=== PATIENT | female | born 1995 | race Caucasian/White ===

== ENCOUNTER 2019-01-17 08:12 | Emergency (ER) | payer BC, MEDICAID ==
[~2019-01-17] VITALS: Ht 149.9 cm; Wt 63.5 kg
[2019-01-17 08:42] LABS: Basophils # (auto) 0 uL; Basophils % (auto) 0.4 % (0.0-2.0); Eosinophils # (auto) 0 uL; Eosinophils % (auto) 0.1 % (0.0-7.0); Hematocrit 42.5 % (36.0-46.0); Hemoglobin 14.5 g/dL (12.2-16.2); Lymphocytes # (auto) 4.1 uL; Lymphocytes % (auto) 42.4 % (10.0-50.0); Mean Corpuscular Hemoglobin 29.9 pg (28.0-32.0); Mean Corpuscular Volume 87.8 fL (80.0-100.0); Monocytes # (auto) 0.9 uL; Monocytes % (auto) 9.2 % (0.0-12.0); Neutrophils # (auto) 4.6 uL; Neutrophils % (auto) 47.9 % (37.0-80.0); Nucleated Red Blood Cells % 0.1 %; Platelet Count (auto) 316 10^3/uL (140-450); Red Blood Cells 4.84 10^6/uL (4.0-5.20); Red Cell Distribution Width 13.3 % (11.8-14.3); White Blood Cell 9.6 10^3/uL (4.4-10.8)
[2019-01-17 09:21] LABS: Albumin 4.1 g/dL (3.4-5.0); BUN/Creatinine Ratio 17.3; Bilirubin, Total 0.6 mg/dL (0.2-1.0); Calcium 9.3 mg/dL (8.5-10.1); Total Protein 8.8 g/dL (6.4-8.2)
[2019-01-17 09:22] LABS: Potassium 3.6 mmol/L (3.5-5.1)
[2019-01-17] MEDS ORDERED: PROMETHAZINE HCL 25 MG/ML 1ML IV ONE (11:00)
[2019-01-17] MEDS ORDERED: SODIUM CHLORIDE 0.9% 1,000 ML IVB ONE (12:27)
[2019-01-17] MEDS ORDERED: METOCLOPRAMIDE HCL 5MG/ml INJ 2ml VIAL IV ONE (12:30)
[2019-01-17 15:46] VITALS: BP 109/75
== END 2019-01-17 16:21 | disposition home or self-care (01) ==
LOC: ER 08:12
DX: F12.988 Cannabis use, unspecified with other cannabis-induced disorder (principal); N39.0 Urinary tract infection, site not specified
CPT/HCPCS: 36415; 80053; 81002; 81025; 83690; 83735; 84443; 85025; 96361; 96374; 96375; 99283; J2550; J2765; J7030

== ENCOUNTER 2019-01-19 16:33 | Emergency (ER) | payer MEDICAID ==
[~2019-01-19] VITALS: Ht 149.9 cm; Wt 63.5 kg
[2019-01-19 19:09] LABS: Urine Bacteria FEW /hpf (None Seen); Urine Blood Negative /uL (Negative); Urine Mucus MANY (None Seen); Urine Specific Gravity 1.036 (1.001-1.035); Urine WBC 35 /hpf (0 - 5)
[2019-01-19 19:19] LABS: Urine Pregnacy Test Negative (Negative)
[2019-01-19 19:24] LABS: Alcohol, Urine < 3.0 mg/dL (0-5); Amphetamine Screen, Urine NEGATIVE (NEGATIVE); Barbiturate Scree,Urine NEGATIVE (NEGATIVE); Benzodiazephine Screen, Urine NEGATIVE (NEGATIVE); Cannabinoid Screen, Urine POSITIVE (NEGATIVE); Cocaine Screen, Urine NEGATIVE (NEGATIVE); Opiate Scree,Urine NEGATIVE (NEGATIVE); Phencyclidine Screen, Urine NEGATIVE (NEGATIVE)
[2019-01-19 19:45] VITALS: BP 124/79
== END 2019-01-19 20:49 | disposition home or self-care (01) ==
LOC: EDBD 16:33 → ER 16:33
DX: F41.1 Generalized anxiety disorder (principal); N39.0 Urinary tract infection, site not specified; R51 Headache; F12.10 Cannabis abuse, uncomplicated
CPT/HCPCS: 70450; 80307; 81001; 81025

== ENCOUNTER 2019-02-16 10:33 | Emergency (ER) | payer MEDICAID ==
[~2019-02-16] VITALS: Ht 149.9 cm; Wt 65.8 kg
[2019-02-16] MEDS ORDERED: SODIUM CHLORIDE 0.9% 1,000 ML IV ONE (10:39)
[2019-02-16] MEDS ORDERED: LORazepam 2MG/ML-1ML VIAL IV ONE (10:45)
[2019-02-16 11:01] LABS: Basophils # (auto) 0 uL; Basophils % (auto) 0.5 % (0.0-2.0); Eosinophils # (auto) 0 uL; Eosinophils % (auto) 0.4 % (0.0-7.0); Hematocrit 41.7 % (36.0-46.0); Hemoglobin 14.2 g/dL (12.2-16.2); Lymphocytes # (auto) 1.2 uL; Lymphocytes % (auto) 15.3 % (10.0-50.0); Mean Corpuscular Hemoglobin 29.8 pg (28.0-32.0); Mean Corpuscular Hgb Conc. 33.9 g/dL (32.0-36.0); Mean Corpuscular Volume 87.9 fL (80.0-100.0); Monocytes # (auto) 0.4 uL; Monocytes % (auto) 4.8 % (0.0-12.0); Neutrophils # (auto) 6.4 uL; Nucleated Red Blood Cells % 0.2 %; Platelet Count (auto) 275 10^3/uL (140-450); Red Blood Cells 4.74 10^6/uL (4.0-5.20); Red Cell Distribution Width 13.1 % (11.8-14.3); White Blood Cell 8.1 10^3/uL (4.4-10.8)
[2019-02-16 11:21] LABS: Albumin 4.2 g/dL (3.4-5.0); BUN/Creatinine Ratio 15.9; Potassium 3.4 mmol/L (3.5-5.1)
[2019-02-16 11:23] LABS: Bilirubin, Total 0.4 mg/dL (0.2-1.0); Total Protein 8.2 g/dL (6.4-8.2)
[2019-02-16 12:57] VITALS: BP 107/60
== END 2019-02-16 13:21 | disposition home or self-care (01) ==
LOC: ER 10:33
DX: F41.0 Panic disorder [episodic paroxysmal anxiety] (principal); G25.9 Extrapyramidal and movement disorder, unspecified; F12.10 Cannabis abuse, uncomplicated
CPT/HCPCS: 36415; 80053; 85025; 96374; 99284; J2060; J7030

== ENCOUNTER 2019-02-21 10:11 | Emergency (ER) | payer MEDICAID ==
[~2019-02-21] VITALS: Ht 152.4 cm; Wt 49.9 kg
[2019-02-21 10:22] VITALS: BP 120/84
[2019-02-21] MEDS ORDERED: LORazepam 2MG/ML-1ML VIAL IM ONE (10:30)
[2019-02-21] MEDS ORDERED: PROMETHAZINE HCL 25 MG/ML 1ML ONE (10:37)
[2019-02-21] MEDS ORDERED: PROMETHAZINE HCL 25 MG/ML 1ML IM ONE (10:45)
[2019-02-22] MEDS ORDERED: SERT50TA PO ×2 (12:45)
[2019-02-22] MEDS ORDERED: ALPR1TAB2 PO (17:13)
[2019-02-22] MEDS ORDERED: HYDRX10T PO ×2 (17:13)
== END 2019-02-21 11:49 | disposition home or self-care (01) ==
LOC: EDUNIT# 10:11 → ER 10:11 → EDBD 10:11 → ER 11:49
DX: F41.0 Panic disorder [episodic paroxysmal anxiety] (principal); F12.10 Cannabis abuse, uncomplicated
CPT/HCPCS: 96372; 99283; J2060; J2550; J7030

== ENCOUNTER 2019-02-21 21:51 | Inpatient (IN) | payer MEDICAID ==
[~2019-02-21] VITALS: Ht 149.9 cm; Wt 61.7 kg
[2019-02-21] MEDS ORDERED: SODIUM CHLORIDE 0.9% 500 ML IV ONE (22:08)
[2019-02-21 22:29] LABS: Basophils # (auto) 0 uL; Basophils % (auto) 0.2 % (0.0-2.0); Eosinophils # (auto) 0 uL; Hematocrit 40.6 % (36.0-46.0); Hemoglobin 13.6 g/dL (12.2-16.2); Lymphocytes # (auto) 2.1 uL; Lymphocytes % (auto) 10.9 % (10.0-50.0); Mean Corpuscular Hemoglobin 30.1 pg (28.0-32.0); Mean Corpuscular Hgb Conc. 33.5 g/dL (32.0-36.0); Mean Corpuscular Volume 89.9 fL (80.0-100.0); Monocytes # (auto) 1.2 uL; Neutrophils # (auto) 16.1 uL; Neutrophils % (auto) 82.9 % (37.0-80.0); Platelet Count (auto) 303 10^3/uL (140-450); Red Blood Cells 4.51 10^6/uL (4.0-5.20); Red Cell Distribution Width 13.5 % (11.8-14.3); White Blood Cell 19.4 10^3/uL (4.4-10.8)
[2019-02-21 22:46] LABS: Albumin 4.4 g/dL (3.4-5.0); Calcium 8.8 mg/dL (8.5-10.1); Potassium 3.1 mmol/L (3.5-5.1)
[2019-02-21 22:49] LABS: BUN/Creatinine Ratio 10.2; Bilirubin, Total 0.5 mg/dL (0.2-1.0)
[2019-02-22 01:09] LABS: Urine WBC None Seen /hpf (0 - 5)
[2019-02-22 01:21] LABS: Urine Bacteria NONE SEEN /hpf (None Seen); Urine Blood Negative /uL (Negative); Urine Mucus FEW (None Seen); Urine Specific Gravity 1.015 (1.001-1.035)
[2019-02-22] MEDS ORDERED: SODIUM CHLORIDE 0.9% 1,000 ML IV ONE ×2 (01:45→02:30)
[2019-02-22 01:55] LABS: Alcohol, Urine < 3.0 mg/dL (0-5); Amphetamine Screen, Urine NEGATIVE (NEGATIVE); Barbiturate Scree,Urine NEGATIVE (NEGATIVE); Benzodiazephine Screen, Urine NEGATIVE (NEGATIVE); Cannabinoid Screen, Urine POSITIVE (NEGATIVE); Cocaine Screen, Urine NEGATIVE (NEGATIVE); Phencyclidine Screen, Urine NEGATIVE (NEGATIVE)
[2019-02-22 02:02] LABS: Lactic Acid w/Reflex 5.1 mmol/L (0.4-2.0)
[2019-02-22 02:03] LABS: Opiate Scree,Urine NEGATIVE (NEGATIVE)
[2019-02-22] MEDS ORDERED: PIPERACILLIN-TAZOB 3.375GM 100 ML IV ONE (02:45)
[2019-02-22] MEDS ORDERED: VANCOMYCIN PER PHARMACY 0 MG IV SCH (02:45)
[2019-02-22] MEDS ORDERED: IOHEXOL 300 MG/ML 100ML BOTTLE IJ ONE (02:54)
[2019-02-22 03:01] LABS: Salicylate < 1.7 mg/dL (2.8-20.0)
[2019-02-22 03:02] LABS: Acetaminophen < 2.0 ug/mL (10-30)
[2019-02-22] MEDS ORDERED: VANCOMYCIN 1GM/250ML 250 ML IV ONE (04:00)
[2019-02-22] MEDS ORDERED: LORazepam 2MG/ML-1ML VIAL IV ONE (04:15)
[2019-02-22] MEDS ORDERED: HYDROcodone-ACET 5/325MG TAB PO PRN (05:15)
[2019-02-22] MEDS ORDERED: TEMAZEPAM 15 MG CAP PO PRN (05:15)
[2019-02-22] MEDS ORDERED: ACETAMINOPHEN 325 MG TAB PO PRN (05:15)
[2019-02-22] MEDS ORDERED: SODIUM CHLORIDE 0.9% 1,000 ML IV SCH (05:15)
[2019-02-22] MEDS ORDERED: POTASSIUM CHL 20 Meq TABLET PO ONE (05:45)
[2019-02-22] MEDS: metroNIDAZOLE 500MG/100ML 100 ML IV SCH ×4 (06:38→21:21)
[2019-02-22 08:19] LABS: Amylase 38 U/L (25-115); Lipase 76 U/L (73-393)
[2019-02-22] MEDS: ONDANSETRON HCL 4 MG/2 ML VIAL IV PRN (08:47)
[2019-02-22] MEDS ORDERED: cefTRIAXone 1GM/50ML D5W 50 ML IV SCH (09:00)
[2019-02-22] MEDS ORDERED: LORazepam 2MG/ML-1ML VIAL IV PRN (09:00)
[2019-02-22] MEDS ORDERED: LORazepam 2MG/ML-1ML VIAL ONE (09:04)
[2019-02-22] MEDS: PANTOPRAZOLE 40 MG TAB PO SCH ×2 (09:16→21:21)
[2019-02-22] MEDS ORDERED: GOLYTELY 4L KIT PO ONE (12:00)
[2019-02-22] MEDS ORDERED: SERT50TA PO ×2 (12:45)
[2019-02-22 13:00] VITALS: BP 101/64
--- NOTE | 2019-02-22 13:35 | NUR ---
MED/SURG admit from [facility] admitted to MED/SURG unit. Patient oriented to MOE BARROSO RN primary RN, unit, room, bed, and unit policies regarding patient care and visiting hours. No s/s of distress or SOB. Pt denies pain at this time. Bed in lowest and locked position with side rails upx2 and call light in reach. Encouraged to call if they need something. All questions and concerns addressed, patient verbalized understanding.
--- NOTE | 2019-02-22 14:15 | NUR ---
ROBERTOLY STARTED AND PATIENT EDUCATED ON THE RISKS/BENEFITS OF THE MEDICATION AND TEST. PT VERBALIZED UNDERSTANDING.
[2019-02-22 14:54] LABS: INR 1.21 (0.9-1.15)
[2019-02-22] MEDS ORDERED: LEVOFLOXACIN 250MG 50 ML IV ONE (16:30)
[2019-02-22] MEDS ORDERED: POTASSIUM CHLORIDE 20 MEQ, LIDOCAINE 1% (LOCAL ANESTH.) 2 ML in SODIUM CHL 0.9% 100 ML IV ONE (16:30)
[2019-02-22] MEDS ORDERED: metroNIDAZOLE 500MG/100ML 100 ML IV ONE (16:30)
--- NOTE | 2019-02-22 17:00 | NUR ---
SPOKE TO DR. Mitchel FOFANA. NEW ORDERS RECEIVED, READ BACK AND VERIFIED TO DC PURYD CATHETER AND CONTINUE PATIENTS HOME ANXIETY MEDICATIONS.
[2019-02-22] MEDS ORDERED: ALPR1TAB2 PO (17:13)
[2019-02-22] MEDS ORDERED: HYDRX10T PO ×2 (17:13)
[2019-02-22] MEDS ORDERED: ALPRAZolam 0.5 MG TAB PO PRN (17:15)
[2019-02-22] MEDS: SODIUM CHLORIDE 0.9% 1,000 ML IV SCH (17:49)
--- NOTE | 2019-02-22 18:00 | NUR ---
Cali catheter dc'd Order to discontinue cali catheter. Cali dc'd with clean technique following deflation of balloon. Patient tolerated well with no complaints of pain. Continue care.
[2019-02-22 18:22] VITALS: BP 118/73
--- NOTE | 2019-02-22 19:40 | NUR ---
Opening Shift Note Assumed care of patient, awake and alert. Family at bedside. No S/S of distress/SOB or pain. Bed in lowest locked position, side rails up x2, call light within reach. Instructed on POC and to call for assist PRN, will continue to monitor for changes Q1hr and PRN.
--- NOTE | 2019-02-22 19:46 | NUR ---
STOOL SAMPLE SENT TO LAB.
[2019-02-22] MEDS: POTASSIUM CHL 20 Meq TABLET PO SCH (21:20)
[2019-02-22 22:00] VITALS: BP 120/76
--- NOTE | 2019-02-22 22:00 | NUR ---
Golytely 2/3 of Golytely drunk by patient at this time. Patient aware she needs to complete last 1/3 in AM, verbalized understanding. Will continue to monitor.
[2019-02-22] MEDS ORDERED: VANCOMYCIN 1GM/250ML 250 ML IV SCH (23:00)
[2019-02-23] MEDS: SODIUM CHLORIDE 0.9% 1,000 ML IV SCH ×2 (02:39→12:30)
[2019-02-23 05:34] VITALS: BP 121/79
[2019-02-23] MEDS: metroNIDAZOLE 500MG/100ML 100 ML IV SCH ×4 (06:00→14:01)
--- NOTE | 2019-02-23 06:30 | NUR ---
IV removal and insertion IV to right AC DC'd with clean sterile technique, catheter fully intact. Pressure dressing applied to site. Patient tolerated well. IV access obtained, via clean sterile technique by inserting 22 gauge catheter to patient's left forearm after one attempt by Maurizio JACKSON. IV secured properly. No trauma to site. Patient tolerated well. Will continue care.
[2019-02-23] MEDS ORDERED: ROCURONIUM 10MG/ML 10ML VIAL IV ONE (06:51)
[2019-02-23 06:53] LABS: Basophils # (auto) 0 uL; Basophils % (auto) 0.4 % (0.0-2.0); Eosinophils # (auto) 0 uL; Eosinophils % (auto) 0.1 % (0.0-7.0); Hemoglobin 12.6 g/dL (12.2-16.2); Lymphocytes # (auto) 3.3 uL; Mean Corpuscular Hemoglobin 30.1 pg (28.0-32.0); Mean Corpuscular Volume 88.7 fL (80.0-100.0); Monocytes # (auto) 0.7 uL; Neutrophils % (auto) 49.5 % (37.0-80.0); Nucleated Red Blood Cells % 0.1 %; Platelet Count (auto) 231 10^3/uL (140-450); Red Blood Cells 4.17 10^6/uL (4.0-5.20); Red Cell Distribution Width 13.6 % (11.8-14.3); White Blood Cell 8.1 10^3/uL (4.4-10.8)
[2019-02-23 07:08] LABS: Potassium 3.5 mmol/L (3.5-5.1)
[2019-02-23 07:12] LABS: BUN/Creatinine Ratio 5.2; Calcium 7.9 mg/dL (8.5-10.1)
--- NOTE | 2019-02-23 07:25 | NUR ---
Closing Note Patient lying in bed, awake and alert. Bed in lowest locked position, side rails up x2, call light within reach. No s/s of distress. Care endorsed to dayshift RN.
--- NOTE | 2019-02-23 07:32 | NUR ---
Opening Shift Note Assumed care of patient, awake and alert. No S/S of distress/SOB. Pt denies having any pain at this time. Pt stated that her "anxiety is getting worse" due to thinking about the procedure scheduled. Pt educated on the procedure that is scheduled. Calming techniques implemented. Pt resting in bed practicing calming techniques. Bed in lowest and locked position with side rails up x2 and call light in reach. Instructed on POC and to call for assist PRN, will continue to monitor for changes Q1hr and PRN.
[2019-02-23 09:00] VITALS: BP 144/81
[2019-02-23] MEDS: ONDANSETRON HCL 4 MG/2 ML VIAL IV PRN ×2 (09:04→14:00)
--- NOTE | 2019-02-23 09:20 | NUR ---
INCREASED ANXIETY PATIENT STATED THAT SHE IS EXPRESSING INCREASED "ANXIETY". THE PATIENT ROCKING BACK AND FORTH IN THE BED SIDE CHAIR AND WALKING TO THE BATHROOM WITH THE PATIENTS SISTER AT BEDSIDE. THE PATIENTS SISTER STATED THAT WHILE WALKING TO THE BATHROOM THE PATIENT BEGAN TO "GET WEAK" AND THE SISTER ASSISTED THE PATIENT TO SIT ON THE FLOOR. THE PATIENT THEN WAS ASSISTED BACK TO HER BED FROM THE BATHROOM WITH THE RN AND THE PATIENT BEGAN TO "FEEL WEAK" AND WAS AGAIN ASSISTED TO SIT ON THE FLOOR. THE PATIENT WAS ASSISTED TO HER BED WITH THE PATIENTS SISTER AND RN. THE PATIENT WAS ASSESSED AND NO S/S OF DISTRESS OR SOB. THE PATIENT STATED THAT SHE WAS FEELING SOB, AND PATIENT PLACED ON 2L NC. THE PATIENT VITALS ARE STABLE AND THE POC GLUCOSE WAS 120. THE PATIENT STATED THAT HER "ANXIETY IS BAD BECAUSE I AM NERVOUS FOR THE PROCEDURE". THE PATIENT RESTING IN BED AT THIS TIME AND BEDSIDE COMMODE SET AT BEDSIDE. BED ALARM ON AND SISTER AT BEDSIDE. PATIENT EDUCATED TO CALL IF SHE NEEDS TO GET OUT OF BED AND THE PATIENT VERBALIZED UNDERSTANDING. WILL CONTINUE TO MONITOR PATIENT AND NOTIFY MD OF THESE EVENTS. SUSTAINABILITY CONSULTANTIRMA AWARE OF EVENTS.
[2019-02-23] MEDS ORDERED: SERTRALINE HCL 50 MG TAB PO SCH (10:00)
[2019-02-23] MEDS ORDERED: LEVOFLOXACIN 500MG 100 ML IV SCH (10:00)
[2019-02-23] MEDS ORDERED: MIDAZOLAM HCL 1MG/1ML-2 ML VIAL ONE ×2 (11:29→11:31)
[2019-02-23] MEDS ORDERED: PROPOFOL 10 MG/ML 20 ML IV ONE (11:30)
[2019-02-23] MEDS ORDERED: METOCLOPRAMIDE HCL 5MG/ml INJ 2ml VIAL ONE (11:31)
[2019-02-23] MEDS ORDERED: NALOXONE HCL 0.4 MG/ML VIAL IV PRN (12:00)
[2019-02-23] MEDS ORDERED: ONDANSETRON HCL 4 MG/2 ML VIAL IV PRN (12:00)
[2019-02-23] MEDS ORDERED: HYDROmorphone HCL 2 MG/ML VL IV PRN (12:00)
--- NOTE | 2019-02-23 12:22 | NUR ---
CALL FROM [facility] RECEIVED CALL FROM [facility] RNJOSE ALBERTO. RECEIVED REPORT FROM RN. AWAITING PATIENT ARRIVAL.
--- NOTE | 2019-02-23 12:25 | NUR ---
CALL BACK RECEIVED CALL FROM DR. Mitchel FOFANA. MD NOTIFIED OF PATIENTS ANXIETY. MD AWARE AND NEW ORDERS RECEIVED, READ BACK AND VERIFIED FOR TELE PSYCH CONSULT.
--- NOTE | 2019-02-23 12:30 | NUR ---
PT BACK FROM PROCEDURE. NO S/S OF DISTRESS OR SOB. PT DENIES HAVING ANY PAIN AT THIS TIME. PT EXPRESSES FEELING "GROGGY". PT RESTING IN BED. VITALS STABLE. BED IN LOWEST AND LOCKED POSITION WITH SIDE RAILS UP X2 AND CALL LIGHT IN REACH. BED ALARM ON. CONTINUE TO MONITOR Q1HR AND PRN.
[2019-02-23 13:00] VITALS: BP 146/73
--- NOTE | 2019-02-23 13:00 | NUR ---
PAGED DR. Mitchel FOFANA AWAITING CALL BACK.
[2019-02-23] MEDS: PANTOPRAZOLE 40 MG TAB PO SCH (13:59)
[2019-02-23] MEDS: POTASSIUM CHL 20 Meq TABLET PO SCH (14:00)
--- NOTE | 2019-02-23 14:50 | NUR ---
TELE PSYCH PLACE AT PT BEDSIDE.
--- NOTE | 2019-02-23 14:55 | NUR ---
SPOKE TO DR. DOWNING ACCORDING TO DR. DOWNING THE PATIENT IS CLEARED TO BE DISCHARGED.
[2019-02-23 17:00] VITALS: BP 118/62
--- NOTE | 2019-02-23 17:00 | NUR ---
TELE PSYCH CONSULT TELE PSYCH CONSULTED AND PLACED HARD COPY IN PT HARD CHART.
--- NOTE | 2019-02-23 18:43 | NUR ---
CALLED DR. Mitchel TUCKER MD AWARE OF PATIENT ASSIST TO FLOOR DURING ANXIETY EVENT. NEW ORDERS RECEIVED, READ BACK AND VERIFIED TO BEGIN LEXAPRO 5MG PO.
[2019-02-23] MEDS ORDERED: ALPR1TAB2 PO ×2 (19:35)
[2019-02-23] MEDS ORDERED: ESCI10TA PO ×2 (19:35)
[2019-02-23] MEDS ORDERED: HYDR50CA PO ×2 (19:35)
[2019-02-23 20:08] VITALS: BP 118/62
--- NOTE | 2019-02-23 21:15 | NUR ---
Discharge Discharge instructions given as ordered. Encourage to follow up with PMD, GI, and Pulmonary doctors as instructed. All questions and concerns addressed. Patient verbalized understanding. IV to left forearm removed with catheter intact, pressure dressing applied. Patient taken to vehicle via wheelchair with all personal belongings, accompanied by staff and family member. No distress noted at time of departure.
[2019-02-23] MEDS ORDERED: METR500T PO ×2 (22:43)
[2019-02-23] MEDS ORDERED: LEVO500T21 PO ×2 (22:43)
== END 2019-02-23 21:15 | disposition home or self-care (01) | DRG 720 ==
LOC: EDBD 21:51 → ER 21:54 → OVERFLOW 21:55 → EAST 02-22 13:30
PROVIDERS: ADMIT Nurse Practitioner; ATTEND Internal Medicine
PROC: 0DBL8ZX Excision of Transverse Colon, Via Natural or Artificial Opening Endoscopic, Diagnostic (ICD-10-PCS; 2019-02-23)
PROC: 0DBH8ZZ Excision of Cecum, Via Natural or Artificial Opening Endoscopic (ICD-10-PCS; principal; 2019-02-23 11:32)
DX: A41.9 Sepsis, unspecified organism (principal); K51.00 Ulcerative (chronic) pancolitis without complications; E86.0 Dehydration; E87.6 Hypokalemia; R91.8 Other nonspecific abnormal finding of lung field; F41.0 Panic disorder [episodic paroxysmal anxiety]; F43.20 Adjustment disorder, unspecified; F12.90 Cannabis use, unspecified, uncomplicated; K63.5 Polyp of colon; Z80.1 Family history of malignant neoplasm of trachea, bronchus and lung; Z81.8 Family history of other mental and behavioral disorders; Q27.30 Arteriovenous malformation, site unspecified
CPT/HCPCS: 36415; 36600; 45380; 71260; 74177; 80048; 80053; 80307; 80320; 80329; 81001; 81025; 82150; 82805; 82962; 83605; 83690; 84484; 84702; 85025; 85610; 87040; 87086; 93005; 96361; 96365; 96367; 96375; G0378; J0696; J1956; J2001; J2250; J2405; J2543; J2704; J3490

== ENCOUNTER 2019-03-02 14:02 | Emergency (ER) | payer MEDICAID ==
[~2019-03-02] VITALS: Ht 149.9 cm; Wt 54.4 kg
[~2019-03-02 14:02] MED LIST: ALPR1TAB2 PO; ESCI10TA PO; HYDR50CA PO; LEVO500T21 PO; METR500T PO
[2019-03-02 14:27] VITALS: BP 119/82
[2019-03-02 14:52] LABS: Basophils # (auto) 0 uL; Basophils % (auto) 0.6 % (0.0-2.0); Eosinophils # (auto) 0.1 uL; Eosinophils % (auto) 0.9 % (0.0-7.0); Hematocrit 39.8 % (36.0-46.0); Hemoglobin 13.5 g/dL (12.2-16.2); Lymphocytes # (auto) 2.1 uL; Lymphocytes % (auto) 29.5 % (10.0-50.0); Mean Corpuscular Hemoglobin 29.9 pg (28.0-32.0); Mean Corpuscular Hgb Conc. 33.8 g/dL (32.0-36.0); Mean Corpuscular Volume 88.3 fL (80.0-100.0); Monocytes # (auto) 0.7 uL; Monocytes % (auto) 9.3 % (0.0-12.0); Neutrophils # (auto) 4.3 uL; Neutrophils % (auto) 59.7 % (37.0-80.0); Nucleated Red Blood Cells % 0.1 %; Platelet Count (auto) 290 10^3/uL (140-450); Red Blood Cells 4.51 10^6/uL (4.0-5.20); Red Cell Distribution Width 13.6 % (11.8-14.3); White Blood Cell 7.2 10^3/uL (4.4-10.8)
[2019-03-02 15:12] LABS: BUN/Creatinine Ratio 16.2; Calcium 8.5 mg/dL (8.5-10.1); Potassium 3.3 mmol/L (3.5-5.1)
[2019-03-02 15:15] LABS: Bilirubin, Total 0.4 mg/dL (0.2-1.0); Total Protein 7.7 g/dL (6.4-8.2)
[2019-03-02] MEDS ORDERED: POTASSIUM EFFERVESENT TAB 25 MEQ PO ONE (16:45)
== END 2019-03-02 18:06 | disposition left against medical advice (07) ==
LOC: ER 14:02
DX: K29.70 Gastritis, unspecified, without bleeding (principal); E87.6 Hypokalemia
CPT/HCPCS: 36415; 80053; 85025

== ENCOUNTER 2019-12-05 19:06 | Emergency (ER) | payer MEDICAID ==
[~2019-12-05] VITALS: Ht 162.6 cm; Wt 54.4 kg
[2019-12-05 19:16] VITALS: BP 114/74
== END 2019-12-05 21:02 | disposition left against medical advice (07) ==
LOC: EDBD 19:06 → ER 19:06
DX: F41.9 Anxiety disorder, unspecified (principal); Z53.21 Procedure and treatment not carried out due to patient leaving prior to being seen by health care provider

== ENCOUNTER 2020-01-05 12:47 | Emergency (ER) | payer MEDICAID ==
[~2020-01-05] VITALS: Ht 149.9 cm; Wt 49.9 kg
[2020-01-05] MEDS ORDERED: ALPRAZolam 0.5 MG TAB PO ONE (13:15)
[2020-01-05] MEDS ORDERED: LORazepam 2MG/ML-1ML VIAL IV ONE (14:00)
[2020-01-05] MEDS ORDERED: SODIUM CHLORIDE 0.9% 1,000 ML IV ONE (14:00)
[2020-01-05] MEDS ORDERED: PROMETHAZINE HCL 25 MG/ML 1ML IV ONE (14:00)
[2020-01-05 14:24] LABS: Basophils # (auto) 0 10 ^3/uL (0-0.2); Basophils % (auto) 0.4 % (0.0-2.0); Eosinophils # (auto) 0 10 ^3/uL (0-0.8); Eosinophils % (auto) 0.1 % (0.0-7.0); Hematocrit 40.9 % (36.0-46.0); Hemoglobin 13.6 g/dL (12.2-16.2); Lymphocytes # (auto) 1.2 10 ^3/uL (0.4-5.4); Lymphocytes % (auto) 12.4 % (10.0-50.0); Mean Corpuscular Hgb Conc. 33.4 g/dL (32.0-36.0); Monocytes # (auto) 0.4 10 ^3/uL (0-1.3); Monocytes % (auto) 4.1 % (0.0-12.0); Neutrophils # (auto) 8.3 10 ^3/uL (1.6-8.6); Platelet Count (auto) 330 10^3/uL (140-450); Red Blood Cells 4.54 10^6/uL (4.0-5.20); Red Cell Distribution Width 12.8 % (11.8-14.3)
[2020-01-05 14:41] LABS: Anion Gap 10 (5-15); Blood Urea Nitrogen 11 mg/dL (7-18); Calcium 9.5 mg/dL (8.5-10.1); Carbon Dioxide 22 mmol/L (21-32); Chloride 105 mmol/L (98-107); Glucose 139 mg/dL (74-106); Potassium 4.1 mmol/L (3.5-5.1); Sodium 137 mmol/L (136-145)
[2020-01-05 14:46] LABS: BUN/Creatinine Ratio 12.9; GFR African American 104 mL/min; GFR Non-African American 86 mL/min
[2020-01-05 15:33] LABS: Alcohol, Urine < 3.0 mg/dL (0-10); Amphetamine Screen, Urine NEGATIVE (NEGATIVE); Barbiturate Scree,Urine NEGATIVE (NEGATIVE); Benzodiazephine Screen, Urine NEGATIVE (NEGATIVE); Cannabinoid Screen, Urine POSITIVE (NEGATIVE); Cocaine Screen, Urine NEGATIVE (NEGATIVE); Opiate Scree,Urine NEGATIVE (NEGATIVE); Phencyclidine Screen, Urine NEGATIVE (NEGATIVE)
[2020-01-05 16:01] LABS: Urine Bacteria FEW /hpf (None Seen); Urine Blood Negative /uL (Negative); Urine Mucus FEW (None Seen); Urine Specific Gravity 1.021 (1.001-1.035); Urine WBC 1 /hpf (0 - 5)
[2020-01-05 16:15] VITALS: BP 116/58
== END 2020-01-05 16:20 | disposition home or self-care (01) ==
LOC: ER 12:47
DX: F41.9 Anxiety disorder, unspecified (principal); Z79.899 Other long term (current) drug therapy
CPT/HCPCS: 36415; 80048; 80307; 81001; 84443; 84484; 85025; 93005; 96361; 96374; 96375; 99284; J2060; J2550

== ENCOUNTER 2020-01-07 11:27 | Emergency (ER) | payer MEDICAID ==
[~2020-01-07] VITALS: Ht 162.6 cm; Wt 49.9 kg
[2020-01-07] MEDS ORDERED: LORazepam 2MG/ML-1ML VIAL ONE (12:16)
[2020-01-07] MEDS ORDERED: LORazepam 2MG/ML-1ML VIAL IV ONE (12:30)
[2020-01-07] MEDS ORDERED: AMITRIPTYLINE HCL 25 MG TAB PO ONE (12:45)
[2020-01-07] MEDS ORDERED: HALOPERIDOL LACTATE 5 MG/ML INJ VIAL IM ONE (14:00)
[2020-01-07] MEDS ORDERED: diphenhdrAMINE HCL 50 MG/1 ML VL IM ONE (14:00)
[2020-01-07 14:59] LABS: Basophils # (auto) 0 10 ^3/uL (0-0.2); Basophils % (auto) 0.2 % (0.0-2.0); Eosinophils # (auto) 0 10 ^3/uL (0-0.8); Hematocrit 40.6 % (36.0-46.0); Hemoglobin 13.7 g/dL (12.2-16.2); Lymphocytes # (auto) 1.2 10 ^3/uL (0.4-5.4); Lymphocytes % (auto) 13.4 % (10.0-50.0); Mean Corpuscular Hemoglobin 30.1 pg (28.0-32.0); Mean Corpuscular Hgb Conc. 33.8 g/dL (32.0-36.0); Mean Corpuscular Volume 88.9 fL (80.0-100.0); Monocytes # (auto) 0.6 10 ^3/uL (0-1.3); Monocytes % (auto) 7.2 % (0.0-12.0); Neutrophils # (auto) 7.1 10 ^3/uL (1.6-8.6); Neutrophils % (auto) 79.2 % (37.0-80.0); Nucleated Red Blood Cells % 0.1 %; Platelet Count (auto) 329 10^3/uL (140-450); Red Blood Cells 4.57 10^6/uL (4.0-5.20); Red Cell Distribution Width 12.9 % (11.8-14.3); White Blood Cell 8.9 10^3/uL (4.4-10.8)
[2020-01-07 15:05] LABS: Albumin 4.2 g/dL (3.4-5.0); Calcium 9.2 mg/dL (8.5-10.1); Potassium 3.4 mmol/L (3.5-5.1)
[2020-01-07 15:06] LABS: Salicylate < 1.7 mg/dL (2.8-20.0)
[2020-01-07 15:09] LABS: BUN/Creatinine Ratio 20.3; Bilirubin, Total 0.8 mg/dL (0.2-1.0); Total Protein 8.2 g/dL (6.4-8.2)
[2020-01-07 15:11] LABS: Urine Bacteria FEW /hpf (None Seen); Urine Blood Negative /uL (Negative); Urine Mucus FEW (None Seen); Urine Specific Gravity 1.031 (1.001-1.035); Urine WBC 7 /hpf (0 - 5)
[2020-01-07 15:18] LABS: Acetaminophen < 2.0 ug/mL (10-30)
[2020-01-07 15:24] LABS: Amphetamine Screen, Urine NEGATIVE (NEGATIVE); Barbiturate Scree,Urine NEGATIVE (NEGATIVE); Benzodiazephine Screen, Urine NEGATIVE (NEGATIVE); Cannabinoid Screen, Urine POSITIVE (NEGATIVE); Cocaine Screen, Urine NEGATIVE (NEGATIVE); Opiate Scree,Urine NEGATIVE (NEGATIVE); Phencyclidine Screen, Urine NEGATIVE (NEGATIVE)
[2020-01-07] MEDS ORDERED: SULFAMETHOX W/TRIMETH(800/160MG) DS TAB PO ONE (16:30)
[2020-01-07 19:09] VITALS: BP 99/57
== END 2020-01-07 20:51 | disposition home or self-care (01) ==
LOC: ER 11:27 → EDBD 11:27 → ER 20:33
DX: F41.9 Anxiety disorder, unspecified (principal); F12.10 Cannabis abuse, uncomplicated; F32.9 Major depressive disorder, single episode, unspecified
CPT/HCPCS: 36415; 80053; 80307; 80329; 81001; 85025; 96374; 99285; J2060

== ENCOUNTER 2020-08-19 13:12 | Emergency (ER) | payer MEDICAID ==
[~2020-08-19] VITALS: Ht 157.5 cm; Wt 54.4 kg
[~2020-08-19 13:12] MED LIST changes: -LEVO500T21 PO; +LEVO500T31 PO
[2020-08-19 13:52] VITALS: BP 106/60
[2020-08-19] MEDS ORDERED: diphenhdrAMINE HCL 50 MG/1 ML VL IV ONE (14:30)
[2020-08-19] MEDS ORDERED: LORazepam 2MG/ML-1ML VIAL IV ONE (14:30)
[2020-08-19] MEDS ORDERED: SODIUM CHLORIDE 0.9% 1,000 ML IV ONE (14:30)
[2020-08-19 14:42] LABS: Basophils # (auto) 0 10 ^3/uL (0-0.2); Basophils % (auto) 0.2 % (0.0-2.0); Eosinophils # (auto) 0 10 ^3/uL (0-0.8); Hematocrit 40.9 % (36.0-46.0); Hemoglobin 13.7 g/dL (12.2-16.2); Lymphocytes # (auto) 0.8 10 ^3/uL (0.4-5.4); Lymphocytes % (auto) 7.5 % (10.0-50.0); Mean Corpuscular Hemoglobin 28.7 pg (28.0-32.0); Mean Corpuscular Hgb Conc. 33.4 g/dL (32.0-36.0); Monocytes # (auto) 0.3 10 ^3/uL (0-1.3); Monocytes % (auto) 2.9 % (0.0-12.0); Neutrophils # (auto) 9.9 10 ^3/uL (1.6-8.6); Neutrophils % (auto) 89.4 % (37.0-80.0); Nucleated Red Blood Cells % 0.1 %; Platelet Count (auto) 432 10^3/uL (140-450); Red Blood Cells 4.76 10^6/uL (4.0-5.20); Red Cell Distribution Width 13.5 % (11.8-14.3); White Blood Cell 11.1 10^3/uL (4.4-10.8)
[2020-08-19 14:52] LABS: Calcium 9.1 mg/dL (8.5-10.1); Potassium 3.9 mmol/L (3.5-5.1)
[2020-08-19 14:56] LABS: BUN/Creatinine Ratio 19.4; Bilirubin, Total 0.4 mg/dL (0.2-1.0); Total Protein 8.5 g/dL (6.4-8.2)
== END 2020-08-19 15:54 | disposition home or self-care (01) ==
LOC: ER 13:12
DX: F41.8 Other specified anxiety disorders (principal); F41.0 Panic disorder [episodic paroxysmal anxiety]; F32.9 Major depressive disorder, single episode, unspecified; Z79.2 Long term (current) use of antibiotics; Z79.899 Other long term (current) drug therapy
CPT/HCPCS: 36415; 80053; 85025; 96361; 96374; 96375; 99284; J1200; J2060; J7030

== ENCOUNTER 2023-03-28 14:13 | Emergency (ER) | payer MEDICAID ==
[~2023-03-28] VITALS: Ht 152.4 cm; Wt 73.0 kg
[2023-03-28] MEDS ORDERED: LORazepam 2MG/ML-1ML VIAL IM ONE (14:15)
[2023-03-28] MEDS ORDERED: diphenhdrAMINE HCL 50 MG/1 ML VL IM ONE (14:30)
[2023-03-28 15:19] LABS: Acetaminophen < 2.0 UG/ML (10.0-20.0)
[2023-03-28 15:24] LABS: Salicylate < 3.0 mg/dL (2.8-20.0)
[2023-03-28] MEDS ORDERED: METOCLOPRAMIDE HCL 5MG/ml INJ 2ml VIAL ONE (15:57)
[2023-03-28] MEDS ORDERED: LORazepam MDV 2MG/ML 10 ML IV ONE (15:58)
[2023-03-28] MEDS ORDERED: METOCLOPRAMIDE HCL 5MG/ml INJ 2ml VIAL IV ONE (17:00)
[2023-03-28] MEDS ORDERED: LORazepam 2MG/ML-1ML VIAL IV ONE (17:00)
[2023-03-28] MEDS: LORazepam 2MG/ML-1ML VIAL IV ONE (20:00)
[2023-03-28 20:10] VITALS: PULSE 80; RESP 16; O2SAT 100
[2023-03-28 22:12] LABS: Urine Bacteria NONE SEEN /hpf (None Seen); Urine Blood 2+ /uL (Negative); Urine Clarity Clear (Clear); Urine Color Yellow (Yellow); Urine Mucus FEW (None Seen); Urine Protein, UAD 2+ (Negative); Urine Specific Gravity 1.027 (1.001-1.035); Urine Urobilinogen Normal (Negative); Urine WBC 2 /hpf (0 - 5)
[2023-03-28 22:15] LABS: Amphetamine Screen, Urine Neg (NEGATIVE); Barbiturate Scree,Urine Neg (NEGATIVE); Benzodiazephine Screen, Urine Pos (NEGATIVE); Cannabinoid Screen, Urine Pos (NEGATIVE); Cocaine Screen, Urine Neg (NEGATIVE); Opiate Scree,Urine Neg (NEGATIVE); Phencyclidine Screen, Urine Neg (NEGATIVE)
[2023-03-29] MEDS: LORazepam 2MG/ML-1ML VIAL IV ONE (00:33)
[2023-03-29 05:05] VITALS: BP 115/81; PULSE 109; RESP 16; TEMP 99.1; O2SAT 98
== END 2023-03-29 05:05 | disposition home or self-care (01) ==
LOC: EDBD 14:13 → EEVIPCON 14:13 → ER 14:13
DX: R45.88 Nonsuicidal self-harm (principal); F41.9 Anxiety disorder, unspecified; F32.9 Major depressive disorder, single episode, unspecified; F15.90 Other stimulant use, unspecified, uncomplicated; Z79.899 Other long term (current) drug therapy
CPT/HCPCS: 36415; 80307; 80320; 80329; 81001; 81025; 96372; 96374; 96375; 96376; 99284; J1200; J2060; J2765

== ENCOUNTER 2024-06-16 05:10 | Emergency (ER) | payer MEDICAID ==
[~2024-06-16] VITALS: Ht 157.5 cm; Wt 68.1 kg
[2024-06-16] MEDS: DexAMETHasone SOD PHOS 10MG/1ML VIAL INJ ONE (05:05)
[2024-06-16 05:30] VITALS: PULSE 107
--- NOTE | 2024-06-16 05:35 | PRN ---
Misceleneous Note Note Note RAPID MEDICAL ASSESSMENT NOTE: 28-year-old female who presents to the emergency department with trouble breathing she states she felt she had trouble breathing and felt anxious so she called 911. Physical exam: General: Awake, alert and oriented. No acute distress. Skin: Erythema and warmth of the face and upper chest. HEENT: The head is normocephalic and atraumatic. Conjunctivae are clear without exudates or hemorrhage. Sclera is non-icteric. Neck: Normal range of motion. No JVD. Cardiac: Regular rate Respiratory: No signs of respiratory distress. No Stridor. There is no wheezing on exam. Neurological: The patient is awake, alert and oriented to person, place, and time with normal speech. Speech is clear. There is no facial asymmetry. Psychiatric: Appropriate mood and affect. Good judgement and insight. Plan: IV Benadryl, Decadron, Pepcid, IV fluids for possible allergic reaction. Lab studies. Sign out to oncoming provider pending full evaluation and re-assessment. SONNY CASTLE MD Jun 16, 2024 05:35
--- NOTE | 2024-06-16 05:43 | ECG ---
[facility] Test Date: 2024-06-16 Test Time: 05:25:32 Pat Name: AV NETTLES Department: ER Room: Gender: F Mortgage Advisor: ER : [id number] Requested By: EMERGENCY EMERGENCY Order Number: [id number] Reading MD: Brandon Etienne Measurements Intervals [place] Rate: 98 P: 68 [place]: 130 QRS: 85 QRSD: 94 T: 37 QT: 393 QTc: 502 Interpretive Statements Sinus rhythm Probable left atrial enlargement Borderline T abnormalities, anterior leads Prolonged QT interval Electronically Signed On 06-16-2024 19:23:47 PDT by Brandon Etienne Please click the below link to view image of tracing.
[2024-06-16] MEDS: diphenhdrAMINE HCL 50 MG/1 ML VL IV ONE (05:53)
[2024-06-16] MEDS: FAMOTIDINE (10MG/ML) 2ML VL IV ONE (05:53)
[2024-06-16] MEDS: SODIUM CHLORIDE 0.9% 1,000 ML IV ONE (05:53)
[2024-06-16 05:56] LABS: Basophils # (auto) 0.1 10 ^3/uL (0-0.2); Basophils % (auto) 0.6 % (0.0-2.0); Eosinophils # (auto) 0 10 ^3/uL (0-0.8); Hematocrit 35.5 % (36.0-46.0); Hemoglobin 11.8 g/dL (12.2-16.2); Lymphocytes # (auto) 0.8 10 ^3/uL (0.4-5.4); Lymphocytes % (auto) 6.7 % (10.0-50.0); Mean Corpuscular Hemoglobin 27.7 pg (28.0-32.0); Mean Corpuscular Hgb Conc. 33.3 g/dL (32.0-36.0); Mean Corpuscular Volume 83.3 fL (80.0-100.0); Monocytes # (auto) 0.4 10 ^3/uL (0-1.3); Neutrophils # (auto) 10.7 10 ^3/uL (1.6-8.6); Neutrophils % (auto) 89.7 % (37.0-80.0); Platelet Count (auto) 325 10^3/uL (140-450); Red Blood Cells 4.26 10^6/uL (4.0-5.20); Red Cell Distribution Width 14.7 % (11.8-14.3); White Blood Cell 11.9 10^3/uL (4.4-10.8)
--- NOTE | 2024-06-16 06:03 | DVH ---
CHEST RADIOGRAPH Indication: sob Technique: Single frontal view of the chest was obtained Comparison: None IMPRESSION: No acute cardiopulmonary disease.
[2024-06-16] MEDS: DexAMETHasone INJECTION 10 MG in D5W 5% 50 ML IV ONE (06:05)
[2024-06-16 06:20] LABS: Alanine Aminotransferase 30 U/L (7-40); Alkaline Phosphatase 62 U/L (46-116); Anion Gap 12 (5-15); Aspartate Aminotransferase 27 U/L (13-40); BUN/Creatinine Ratio 20.9 (10.0-20.0); Blood Urea Nitrogen 14 mg/dL (9-23); Calcium 10.2 mg/dL (8.7-10.4); Carbon Dioxide 22 mmol/L (20-31); Chloride 102 mmol/L (98-107); Glucose 99 mg/dL (74-106); Potassium 4.3 mmol/L (3.5-5.1); Sodium 136 mmol/L (136-145)
[2024-06-16 06:22] LABS: Albumin 5.2 g/dL (3.2-4.8); Bilirubin, Total 0.2 mg/dL (0.2-1.0); Total Protein 8.5 g/dL (5.7-8.2)
[2024-06-16 06:45] LABS: Urine Bacteria None Seen /hpf (None Seen)
[2024-06-16] MEDS: LORazepam 0.5 MG TAB PO ONE (06:54)
[2024-06-16] MEDS: LORazepam 2MG/ML-1ML VIAL IV ONE (07:09)
[2024-06-16 07:12] LABS: Benzodiazephine Screen, Urine Pos (NEGATIVE)
[2024-06-16 07:13] LABS: Amphetamine Screen, Urine Neg (NEGATIVE); Barbiturate Scree,Urine Neg (NEGATIVE); Cannabinoid Screen, Urine Pos (NEGATIVE); Cocaine Screen, Urine Neg (NEGATIVE); Opiate Scree,Urine Neg (NEGATIVE); Phencyclidine Screen, Urine Neg (NEGATIVE)
[2024-06-16 07:20] LABS: Urine Blood 1+ /uL (Negative); Urine Clarity Clear (Clear); Urine Color Light-Yellow (Yellow); Urine Mucus FEW (None Seen); Urine Protein, UAD 1+ (Negative); Urine Squamous Epithelial Cell FEW /hpf (<5); Urine Urobilinogen Normal (Negative); Urine WBC 1 /HPF (0-5); Urine pH 6.5 (5.0-9.0)
[2024-06-16 07:30] VITALS: RESP 16; O2SAT 96
[2024-06-16 08:00] VITALS: BP 133/88; RESP 16; TEMP 99; O2SAT 96
--- NOTE | 2024-06-16 09:01 | ED.PDOC ---
Psychiatric HPI Comments Keith: HPI: Poor Historian. HPI: 28 year old female MALINI presents to the ED with chief complaint of anxiety. Patient reports that she had started to experience a panic attack last night around 11pm, believing the cause is due to her psychiatrist switching her Ativan prescription to Xanax and Wellbutrin to Prozac about a week ago. Patient relays that upon arrival to the ED, she started to experience a red, burning, itchy rash to her face, but denies any known drug allergies that could have caused it. Patient states she has history of PMDD, but she is currently on her menses. Patient denies any N/V, SI, HI, AH, VH, SOB, or throat swelling. Vitals: Temp: 98.5F BP: 119/72 HR: 132 RR: 30 spO2: 99% Past Medical History: Anxiety, Depression, Bipolar Disorder, PMDD Past Surgical History: Denies Social History: Denies cigarette, ETOH, or drug use. Allergies: NKDA REVIEW OF SYSTEMS: CONSTITUTIONAL: Denies acute: fever, diaphoresis, chills, generalized weakness. HEAD: Denies acute: headache, photophobia Eyes: Denies acute: Double vision, vision loss, eye pain, eye discharge. EARS: Denies acute: tinnitus, hearing loss, ear discharge, ear pain, THROAT: Denies acute: sore throat, swelling, difficulty swallowing , pain with swallowing, change in voice. NECK: Denies acute: neck pain, neck swelling, stiff neck. HEART: Denies acute : chest pain, palpitations, LUNGS: Denies acute: SOB, wheezing, cough, hemoptysis ABDOMEN: Denies acute: abdominal pain, Nausea, Vomiting, diarrhea, melena , hematemesis, hematochezia SKIN: Denies acute: lesions, . EXTREMITIES: Denies acute: calf pain, numbness, tingling, weakness, denies pain in extremity. Denies acute: Low back pain. Neuro: Denies acute: focal neurological deficit, motor or sensory focal neurological deficit, tremors, seizure like activity, confusion, dizziness, change in mental status, loss of bowel or bladder function, cauda equina like symptoms. : Denies acute: dysuria, hematuria, flank pain, increase in urinary frequency. PSYCH: Denies acute: hallucination, suicidal ideation, homicidal ideation. FEMALE: Denies acute: abnormal vaginal bleeding, foul odor, unusual discharge. Patient is currently on her menstrual cycle PHYSICAL EXAM: General: no acute distress, awake and alert. Head: normocephalic, atraumatic. Neck: supple, trachea is midline, no swelling. Throat: Normal phonation. Eyes:, no erythema, no purulent discharge, no proptosis, no icterus. Heart: regular rate, regular rhythm, no significant murmur appreciated. Lungs: no apparent respiratory distress, Able to speak in full sentences. No wheezing, no rhonchi, no crackles. No stridors Clear to auscultation bilaterally. Abdomen: non tender to palpation, non distended, soft, no guarding, no rebound, + bowel sounds. Neuro: Awake, Alert, oriented to name, self, situation, follows commands GCS=15. Speech is normal. Skin: no petechia, no purpura, no cyanosis, non-pale, not jaundice. Lower extremities: --no - Pitting edema no deformity, no focal swelling, no calf TTP. Makes eye contact. moves all four extremities. Face: no apparent facial droop. Noted bilateral symmetrical erythema the patient describes it as burning sensation. No hives or welts or vesicles. No apparent swelling. No obstruction. Ambulating in the ED independently. ED COURSE: Chief Complaint: Anxiety Time Seen by MD: 08:42 Reviewed Notes: Nurses Notes, Medications, Allergies Information Source: Patient Mode of Arrival: EMS Was a procedure done? Was a procedure done?: No Psych Differential Dx Psych. Differential Dx: Anxiety, Bipolar Disorder, Depression, Hopeless, No symptoms Reported, Panic Disorder, Schizoprenia, Sleepless, Suicidal X-Ray, Labs, Meds, VS Vital Signs Date Time Temp Pulse Resp B/P (MAP) Pulse Ox O2 Delivery O2 Flow Rate FiO2 06/16/24 08:00 99.0 16 133/88 (103) 96 99.0 06/16/24 07:30 16 96 Room Air* 0 21 06/16/24 05:32 Room Air* 0 21 06/16/24 05:30 98.2 107 12 140/80 (100) 98 98.2 06/16/24 05:25 98 06/16/24 05:16 98.5 132 30 119/72 (88) 99 98.5 Lab Test 06/16/24 06:30 06/16/24 05:44 Range/Units Urine Color Light-yellow Yellow Urine Clarity Clear Clear Urine pH 6.5 5.0-9.0 Urine Specific [place] 1.020 1.001-1.035 Urine Protein 1+ H Negative Urine Ketones 1+ H Negative Urine Blood 1+ H Negative /uL Urine Nitrite Negative Negative Urine Bilirubin Negative Negative Urine Urobilinogen Normal Negative mg/dL Urine Leukocyte Esterase Trace Negative /uL Urine RBC 7 0 - 4 /hpf Urine Microscopic WBC 1 0-5 /HPF Urine Squamous Epithelial Cells Few <5 /hpf Urine Bacteria None seen None Seen /hpf Urine Mucus Few None Seen Urine Glucose Normal Normal mg/dL Urine Test Negative Negative Urine Opiates Screen Neg NEGATIVE Urine Fentanyl Screen Neg NEGATIVE Urine Barbiturates Screen Neg NEGATIVE Urine Phencyclidine Screen Neg NEGATIVE Urine Amphetamines Screen Neg NEGATIVE Urine Benzodiazepines Screen Pos NEGATIVE Urine Cocaine Screen Neg NEGATIVE Urine Cannabinoids Screen Pos NEGATIVE White Blood Count 11.9 H 4.4-10.8 10^3/uL Red Blood Count 4.26 4.0-5.20 10^6/uL Hemoglobin 11.8 L 12.2-16.2 g/dL Hematocrit 35.5 L 36.0-46.0 % Mean Corpuscular Volume 83.3 80.0-100.0 fL Mean Corpuscular Hemoglobin 27.7 L 28.0-32.0 pg Mean Corpuscular Hemoglobin Concent 33.3 32.0-36.0 g/dL Red Cell Distribution Width 14.7 H 11.8-14.3 % Platelet Count 325 140-450 10^3/uL Mean Platelet Volume 8.4 6.9-10.8 fL Neutrophils (%) (Auto) 89.7 H 37.0-80.0 % Lymphocytes (%) (Auto) 6.7 L 10.0-50.0 % Monocytes (%) (Auto) 3.0 0.0-12.0 % Eosinophils (%) (Auto) 0.0 0.0-7.0 % Basophils (%) (Auto) 0.6 0.0-2.0 % Neutrophils # (Auto) 10.7 H 1.6-8.6 10 ^3/uL Lymphocytes # (Auto) 0.8 0.4-5.4 10 ^3/uL Monocytes # (Auto) 0.4 0-1.3 10 ^3/uL Eosinophils # (Auto) 0 0-0.8 10 ^3/uL Basophils # (Auto) 0.1 0-0.2 10 ^3/uL Nucleated Red Blood Cells 0.0 % Sodium Level 136 136-145 mmol/L Potassium Level 4.3 3.5-5.1 mmol/L Chloride Level 102 98-107 mmol/L Carbon Dioxide Level 22 20-31 mmol/L Anion Gap 12 5-15 Blood Urea Nitrogen 14 9-23 mg/dL Creatinine 0.67 0.550-1.02 mg/dL Glomerular Filtration Rate Calc 121 >90 mL/min BUN/Creatinine Ratio 20.9 H 10.0-20.0 Serum Glucose 99 74-106 mg/dL Calcium Level 10.2 8.7-10.4 mg/dL Total Bilirubin 0.2 0.2-1.0 mg/dL Aspartate Amino Transferase (AST) 27 13-40 U/L Alanine Aminotransferase (ALT) 30 7-40 U/L Alkaline Phosphatase 62 46-116 U/L Total Protein 8.5 H 5.7-8.2 g/dL Albumin 5.2 H 3.2-4.8 g/dL Thyroid Stimulating Hormone (TSH) 1.93 0.55-4.78 uIU/mL Current Medications Medications (Trade) Dose Ordered Sig/[place] Route Start Time Stop Time Status Last Admin Sodium Chloride 1,000 ml @ 1,000 mls/hr Q1H ONCE IV 06/16/24 05:45 06/16/24 06:44 DC 06/16/24 05:53 Dexamethasone Sodium Phosphate 10 mg/Dextrose 51 ml @ 204 mls/hr ONCE ONCE IV 06/16/24 05:45 06/16/24 05:59 DC 06/16/24 06:05 Famotidine (Pepcid Injection) 20 mg ONCE ONCE IV 06/16/24 05:45 06/16/24 05:46 DC 06/16/24 05:53 Diphenhydramine HCl (Benadryl Injection) 50 mg ONCE ONCE IV 06/16/24 05:45 06/16/24 05:46 DC 06/16/24 05:53 Lorazepam (Ativan Inj) 0.5 mg ONCE ONCE IV 06/16/24 07:00 06/16/24 07:01 DC 06/16/24 07:09 Methylprednisolone Sodium Succinate (Solu Medrol) 125 mg ONCE ONCE IV 06/16/24 09:30 06/16/24 09:31 DC 06/16/24 09:28 Time of 1ST Reevaluation: 09:42 Reevaluation 1ST: Unchanged Patient Education/Counseling: Diagnosis, Treatment Family Education/Counseling: No Family Present Comments Patient presented with the above HPI.--anxiety and panic attack and allergic reaction---workup was initiated. patient was found with the above mentioned diagnosis. the following medications were ordered: please refer to order lists of meds and tests obtained by myself Dr. Calderón. Patient ED course and VS have been stabilized. Patient has been reassessed in the ED and remained in a stable condition. Pertinent incidental findings were discussed with the patient and/or family. Tele psych and healthcare social worker were consulted but patient declined. She said that she feels significantly better and wanted to be discharged home. Patient has been observed in the ED adequate length of time to insure improvement/stability. Escalation of care considered: Consideration of escalation to observation or admission Patient eloped All the reports of any imaging studies that were ordered by myself were reviewed by myself. Departure 1 Departure Time of Disposition: 09:28 Impression: Primary Impression: Anxiety attack Additional Impressions: Rash Allergic reaction Eloped from emergency department Disposition: 07 LEFT AWOL/ELOPED Condition: Stable Additional Instructions: Patient eloped e-Prescriptions Prednisone (Prednisone) 20 Mg Tab 20 MG PO DAILY for 5 Days, #5 MG Prov: RUTHANN CALDERÓN DO 06/16/24 Discharged With: Self Critical Care Note Critical Care Time?: Yes (35 min-critical care time only) I personally scribed for RUTHANN CALDERÓN DO ([email or web address]) on 06/16/24 at 09:01. Electronically submitted by Esteban Johnston ([email or web address]). RUTHANN CALDERÓN DO Jun 16, 2024 09:01
[2024-06-16] MEDS: methylPREDNISolone SOD SUCC 125 MG/2 ML VL IV ONE (09:28)
[2024-06-16] MEDS ORDERED: PRED20TA2 PO (11:13)
== END 2024-06-16 11:28 | disposition left against medical advice (07) ==
LOC: EDUNIT# 05:10 → EDBD 05:10 → ER 05:10
DX: T78.49XA Other allergy, initial encounter (principal); F41.0 Panic disorder [episodic paroxysmal anxiety]; Z79.899 Other long term (current) drug therapy; X58.XXXA Exposure to other specified factors, initial encounter
CPT/HCPCS: 36415; 71045; 80053; 80307; 81001; 81025; 84443; 85025; 93005; 96365; 96375; 99285; J1100; J1200; J2060; J2919; J3490; J7030; J7060